=== PATIENT | male | born 1980 | race Caucasian/White ===

== ENCOUNTER 2025-06-20 20:03 | Emergency (ER) | payer MEDICARE ==
[~2025-06-20] VITALS: Ht 177.8 cm; Wt 100.0 kg
[~2025-06-20 20:03] MED LIST: ACET-2123 PO; DOCU-385 PO; ESCI20TA87 PO; KETO10TA2 PO; QUET25TA PO
[2025-06-20 20:23] VITALS: TEMP 98.2
[2025-06-20 20:41] LABS: APPEARANCE,URINE TURBID (CLEAR); GLUCOSE, URINE (UA) NEGATIVE (NEGATIVE); LEUKOCYTE ESTERASE ,URINE NEGATIVE (NEGATIVE); NITRATE,URINE NEGATIVE (NEGATIVE); OCCULT BLOOD,URINE LARGE (NEGATIVE); PH,URINE DRUG SCREEN 5.5 (5.0-8.0); SPECIFIC GRAVITIY, URINE 1.034 (1.003-1.030)
[2025-06-20 20:48] LABS: ALCOHOL, URINE DRUG SCREEN NEGATIVE (NEGATIVE); AMPHET/METH SCREEN,URINE POSITIVE (NEGATIVE); BARBITURATE SCREEN, URINE NEGATIVE (NEGATIVE); CANNABINOID SCREEN,URINE NEGATIVE (NEGATIVE); COCAINE SCREEN,URINE NEGATIVE (NEGATIVE); METHADONE SCREEN, URINE NEGATIVE (NEGATIVE); SULFOSALICYLIC ACID,URINE 2+ (Negative)
[2025-06-20 20:49] LABS: AMORPHOUS SEDIMENT,UR Many /LPF (None Seen); SQUAMOUS EPITHELIAL CELL,UR Rare /LPF (None Seen)
[2025-06-20 21:24] LABS: PLATELET COUNT (AUTO) 345 K/uL (150-450); RED BLOOD CELL COUNT(AUTO) 6.25 MIL/uL (4.50-5.90); RED CELL DISTRIBUTION WIDTH 13.6 % (11.5-14.5); WHITE BLOOD COUNT (AUTO) 12.9 K/uL (4.5-11.0)
[2025-06-20 21:36] LABS: RBC MORPHOLOGY COMMENT NORMAL RBC MORPH
[2025-06-20 21:46] LABS: CALCIUM, TOTAL 9.3 mg/dL (8.8-10.5); CREATININE 0.87 mg/dL (0.60-1.30); GLOMERULAR FILTR. RATE CALC > 60 mL/min (>60); GLUCOSE,RANDOM 106 mg/dL (70-110); SODIUM SERUM 138 mmol/L (136-145); UREA NITROGEN, BLOOD 15 mg/dL (7-18)
[2025-06-20 21:55] LABS: TROPONIN I-HIGH SENSITIVITY 30 ng/L (<76)
[2025-06-20] MEDS: LORazepam 2 MG/ML VIAL IVP ONE ×2 (22:05→23:22)
[2025-06-20] MEDS: SODIUM CHLORIDE 0.9% 1,000 ML IV ONE ×2 (22:23→23:42)
[2025-06-21] VITALS: BP 134/80; PULSE 112; RESP 20; O2SAT 98
== END 2025-06-21 01:11 | disposition home or self-care (01) ==
LOC: EMS 20:03
DX: F15.10 Other stimulant abuse, uncomplicated (principal); E86.0 Dehydration; R07.89 Other chest pain; R10.A0 Flank pain, unspecified side; F41.9 Anxiety disorder, unspecified; F17.210 Nicotine dependence, cigarettes, uncomplicated; F10.90 Alcohol use, unspecified, uncomplicated; F14.90 Cocaine use, unspecified, uncomplicated; F32.A Depression, unspecified; Z79.899 Other long term (current) drug therapy; Z88.5 Allergy status to narcotic agent
CPT/HCPCS: 99285; 96374; 96361; 71045; 80048; 81001; 82550; 84484; 85025; 36415; 93005; 96376; 80307; J2060; J7030; 81002